=== PATIENT | male | born 1940 | race African-American/Black ===

== ENCOUNTER 2023-03-08 15:04 | Inpatient (IN) | payer OTHER, SELFPAY ==
[2023-03-08] VITALS (39 sets, daily range): BP systolic 78–146; BP diastolic 48–88; PULSE 71–120; RESP 15–30; TEMP 36.1–38.4; O2SAT 84–100; BMI 28.8
--- NOTE | ~2023-03-08 | XR_ITS ---
EXAMINATION: XR abdomen gastric tube insert DATE: 03/08/2023 17:17 INDICATION: Nasogastric tube placement. TECHNIQUE: A supine view of the abdomen was obtained. COMPARISON: None. FINDINGS: There are no dilated loops of bowel. The nasogastric tube tip is in the stomach with proxim al side port in the distal esophagus. IMPRESSION: 1. Nasogastric tube tip in the stomach with proximal side port in the distal esophagus. Advancement 5 cm is recommended. Reviewed, dictated and finalized at location A. IDER ENGAGEMENT EXECUTIVE IMPRESSION: 1. Nasogastric tube tip in the stomach with proximal side port in the distal es ophagus. Advancement 5 cm is recommended.
--- NOTE | ~2023-03-08 | CT_ITS ---
EXAMINATION: CT diagnostic chest w con DATE: 03/08/2023 18:27 INDICATION: LUNG MASS, PNEUMONIA, CHF TECHNIQUE: Computed tomography (CT) of the chest was performed with 100 mL Omnipaque-350 intravenous contrast. Automated exposure control and iterative reconstruction technique were employed. The dose-l ength product was 492.76 mGy-cm. COMPARISON: X-ray chest 03/08/2023 at 5:14 PM. FINDINGS: CHEST: Thoracic aorta: No significant dilation or calcification. Lung parenchyma and airways: Airway secretions in the distal trachea and left mainstem bronchus. Mild emphysematous change. Diffuse groundglass opacities, centralized, more pronounced in the bilateral u pper lungs. More focal consolidation is present in the superior segments of the bilateral lower lobes and the bilateral dependent lower lobes. Thoracic inlet, axillae and chest wall: No thyroid or soft tissue mass. No axillary lymphadenopathy. Endotracheal tube terminating 5.1 cm above the pino. Mediastinum: Dilated central pulmonary arteries as can be seen with pulmonary arterial hypertension. Heart and pericardium: Cardiomegaly. Aortic valve and mitral calcifications. Pacemaker leads in expec zaira position. Coronary artery calcifications: Moderate. Pleura: No effusion or mass. Upper abdomen: NG tube tip in the stomach, side port near the GE junction. Numerous large bilateral r enal cysts. Thoracic bones: No acute osseous finding in the chest. IMPRESSION: Pulmonary opacities likely represent severe pulmonary edema. Upper lobe predominance can be seen with neurogenic edema. More focal bilateral lower lobe superior segment and dependent consolidation may be secondary to kush a, aspiration, or infection. Distal tracheal and right mainstem bronchus secretions. The masslike right hilar finding in the prior chest radiograph is secondary to dilated pulmonary alanna bruce. Endotracheal tube terminates 5.0 cm above the pino. Somewhat shallow positioning of the NG tube, co nsider advancing by 5 cm Reviewed, dictated and finalized at location K. CIATE OF SCIENCE IN NURSING IMPRESSION: Pulmonary opacities likely represent severe pulmonary edema. Upper lobe predomi nance can be seen with neurogenic edema. More focal bilateral lower lobe superior segment and dependent consolidation ma y be secondary to edema, aspiration, or infection. Distal tracheal and right mainstem bronchus secretions. The masslike right hilar finding in the prior chest radiograph is secondary to dilated pulmonary arteries. Endotracheal tube terminates 5.0 cm above the pino. Somewhat shallow position ing of the NG tube, consider advancing by 5 cm
--- NOTE | ~2023-03-08 | XR_ITS ---
Portable chest x-ray Comparison: 03/09/2023 Clinical History: Respiratory failure Findings: Endotracheal tube and NG tube and right IJ line are in place. Probable minimal pleural eff usions. There is central distribution of airspace disease, right lung worse than left. Cardiomediast inal silhouette is stable, with pacemaker device. Bones and soft tissues are unremarkable. Impression: Mild to moderate central pulmonary edema pattern. Correlate clinically for infection. Probable minimal pleural effusions. Support tubes and pacemaker device, as above. Reviewed, dictated and finalized at [facility]. TAL STRATEGIST SENIOR MANAGER Impression: Mild to moderate central pulmonary edema pattern. Correlate clinically for infe ction. Probable minimal pleural effusions. Support tubes and pacemaker device, as above.
--- NOTE | ~2023-03-08 | CT_ITS ---
EXAMINATION: CT abdomen pelvis wo con DATE: 03/09/2023 14:09 INDICATION: Hematuria TECHNIQUE: Computed tomography (CT) of the abdomen and pelvis was performed without intravenous contr ast. Automated exposure control and iterative reconstruction technique were employed. The dose-length product was 1230.03 mGy-cm. COMPARISON: None FINDINGS: Small bilateral pleural effusions with associated volume loss and dependent compressive atelectasis i n the bilateral lower lobes. Additional mild dependent atelectasis at the basilar aspect of the lingu la. Cardiomegaly. Atherosclerotic coronary artery calcifications and aortic valve calcification. Dual -lead cardiac pacemaker with lead tips at the right atrial appendage and near the apex of the right v entricle. No pericardial effusion. Nasogastric tube tip in the body the stomach. 1.3 cm hepatic cyst. Multiple bilateral renal cysts the largest measuring up to 8.8 cm on the left an d 6.8 cm on the right. There are some residual excreted contrast bilateral renal collecting systems r elated to contrast-enhanced chest CT from one day prior. Small amount of arterial atherosclerotic randy cification at the right renal hilum. No urolithiasis. There are some additional vicariously excreted contrast in the dependent aspect of the gallbladder. Spleen, pancreas and bilateral adrenal glands ar e normal. Leggett catheter and some additional excreted contrast within the partially decompressed gall bladder. Prominent prostatomegaly measuring 7.6 x 6.4 x 5.4 cm and which impresses upon the base of t he bladder. Bowels including the appendix are normal. Very small fat-containing umbilical hernia. No free intraperitoneal gas or fluid. No pathologically enlarged abdominal or pelvic lymphadenopathy. Ne ck abdominal aorta. There are bridging osteophytes at multiple levels consistent with diffuse idiopat hic skeletal hyperostosis (DISH). 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 Moderate bilateral hi p osteoarthritis. IMPRESSION: 1. Small bilateral pleural effusions with dependent compressive atelectasis in the bilateral lower lo bes. 2. Cardiomegaly. 3. Prostatomegaly. 4. Very small fat-containing umbilical hernia. Reviewed, dictated and finalized at location A. RY ASSISTANT IMPRESSION: 1. Small bilateral pleural effusions with dependent compressive atelectasis in the bilateral lower lobes. 2. Cardiomegaly. 3. Prostatomegaly. 4. Very small fat-containing umbilical hernia.
--- NOTE | ~2023-03-08 | XR_ITS ---
EXAMINATION: XR abdomen gastric tube rechec DATE: 03/09/2023 13:20 INDICATION: Orogastric tube placement. TECHNIQUE: An upright view of the abdomen was obtained. COMPARISON: Chest CT 03/08/2023 FINDINGS: The lower abdomen is excluded. The orogastric tube tip is in the stomach. There is a left c hest wall pacer with leads in the right atrium and right ventricle. Again seen are airspace opacities at left lung base. IMPRESSION: 1. Orogastric tube tip in the stomach. 2. Airspace opacities at left lung base, consistent with pneumonia. Reviewed, dictated and finalized at location A. CARE CONTACT SPECIALIST
--- NOTE | ~2023-03-08 | XR_ITS ---
EXAMINATION: XR chest 1V portable Exam Date/Time: 03/08/2023 15:50 TAFE REGISTRAR HISTORY: fever Comparison: None. RESULT: Lines, tubes, and devices: Left chest pacer with intact leads. Lungs and pleura: Moderate diffuse reticular and reticulonodular opacities. Cardiomediastinal silhouette: 3.2 cm right hilar opacity. Other: No acute osseous or upper abdominal finding. IMPRESSION: Pulmonary opacities may represent interstitial edema or respiratory bronchiolitis. 3.2 cm right hilar opacity, consider CT of the chest with contrast for further evaluation. Reviewed, dictated and finalized at location K. REGISTRAR IMPRESSION: Pulmonary opacities may represent interstitial edema or respiratory bronchiolit is. 3.2 cm right hilar opacity, consider CT of the chest with contrast for further evaluation.
--- NOTE | ~2023-03-08 | CT_ITS ---
EXAMINATION: CT brain wo con DATE: 03/08/2023 18:26 INDICATION: ALTERED . TECHNIQUE: Computed tomography (CT) of the head was performed without intravenous contrast. The mA wa s adjusted according to patient size. Iterative reconstruction technique was employed. The dose-lengt h product was 681.00 mGy-cm. COMPARISON: None. FINDINGS: No acute intracranial hemorrhage or extra-axial fluid collection. No hydrocephalus, mass, or herniation. No acute ischemic infarct. Unremarkable dural venous sinus attenuation. No acute osseous abnormality. Mild inferior frontal and bilateral ethmoid mucosal thickening, the remaining aerated spaces are aron r. Moderate atrophy and chronic white matter change. Atherosclerotic intracranial calcification. Partial ly visualized endotracheal and OG tubes. IMPRESSION: No acute intracranial process. Reviewed, dictated and finalized at location K. RVISOR REWORK
--- NOTE | ~2023-03-08 | XR_ITS ---
EXAMINATION: XR chest ET placement DATE: 03/08/2023 17:17 INDICATION: Intubation. TECHNIQUE: A single frontal view of the chest was obtained. COMPARISON: Chest single view 03/08/2023 FINDINGS: There are patchy airspace opacities in all lung zones bilaterally. No pleural effusion or p neumothorax. Cardiomegaly is noted. There is a left chest wall pacer with leads in the right atrium a nd right ventricle. The endotracheal tube tip is 7.1 cm above the pino. The nasogastric tube tip is in the stomach. The proximal side port is in the distal esophagus. IMPRESSION: 1. Diffuse lung disease, consistent with pulmonary edema versus pneumonia. 2. Cardiomegaly. 3. Nasogastric tube tip in the stomach with proximal side port in the distal esophagus. Advancement 5 cm is recommended. Reviewed, dictated and finalized at location A. RIAL EXPEDITER IMPRESSION: 1. Diffuse lung disease, consistent with pulmonary edema versus pneumonia. 2. Cardiomegaly. 3. Nasogastric tube tip in the stomach with proximal side port in the distal es ophagus. Advancement 5 cm is recommended.
--- NOTE | ~2023-03-08 | XR_ITS ---
Portable chest x-ray Comparison: 03/08/2023 Clinical History: Line placement Findings: Endotracheal tube, NG tube, and right IJ line are in satisfactory positions. No pneumothor ax. Extensive groundglass pulmonary disease is present bilaterally. Cardiomediastinal silhouette is stable, with pacemaker device. Bones and soft tissues are unremarkable. Impression: Support tubes, as above. No pneumothorax. Extensive groundglass pulmonary disease. Correlate for pulmonary edema or infection. Reviewed, dictated and finalized at location . RBOARD MACHINE OPERATOR Impression: Support tubes, as above. No pneumothorax. Extensive groundglass pulmonary disease. Correlate for pulmonary edema or infec tion.
--- NOTE | 2023-03-08 15:36 | PC.NURSE ---
EMS reports o arrival pt SPO2 was 88% RA, patient does not normally wear O2. On arrival to ED SPO2 82% RA, O2 applied at 3L/NC
--- NOTE | 2023-03-08 15:46 | ED.AMS ---
HPI - Altered Mental Status General Chief Complaint: Altered Mental Status Stated Complaint: AMS, UTI Time Seen by Provider: 03/08/23 15:46 Source: family History of Present Illness HPI narrative: 82 years old male came from home by ambulance with decreased level of consciousness, fever and shortness of breath today. Patient lives alone, last time was seen by his daughters yesterday and he was doing okay, this morning he could not answer the phone appropriately that is why his daughter called 911. Patient is full code. Related Data Allergies Allergy/AdvReac Type Severity Reaction Status Date / Time No Known Allergies Allergy Verified 03/08/23 16:38 Review of Systems Review of Systems: All systems reviewed & are unremarkable except as noted in HPI and below PMFSH Social History Social History (Updated 03/08/23 @ 18:56 by Alee Mccann PA-C) Social History: Surrogate medical decision maker: Payam Tavera, daughter. Code status: Full code. Living arrangements: alone Additional living arrangements comments: Lives in his own home in [place]. Exam Narrative: General appearance: Well-developed, well-nourished, less responsive to verbal commands, laying down flat, Venti mask on, eyes looking backward, rattling breath sounds, belly breathing Skin: Normal color Head: Normocephalic, nontraumatic Eyes: Clear conjunctiva ENT: Oropharynx normal, ears normal, nose normal Neck: Supple, nontender Chest and respiratory: diminution of air entry bilaterally, rhonchi and rales Heart: tachycardia Abdomen: Soft, nontender, no organomegaly, quiet bowel sounds, Leggett catheter in Vascular: Normal peripheral pulses, normal capillary refill. Musculoskeletal: Normal range of motion, nontender back Neurologic: Alert and oriented ?3, DIRECTOR OF CLAIMS is normal as tested, no gross motor deficit Course Consultations Consultation #1: DR CARMONA Date: 03/08/23 Time: 17:12 Consultation #2: [facility], AT FULL CAPACITY, NO WAITING LIST. Date: 03/08/23 Time: 19:24 Vital Signs Vital signs: Vital Signs Temperature 38.4 C H 03/08/23 15:29 Pulse Rate 117 H 03/08/23 15:29 Respiratory Rate 29 H 03/08/23 15:29 Blood Pressure 146/88 H 03/08/23 15:29 Pulse Oximetry 84 L 03/08/23 15:29 Oxygen Delivery Room Air 03/08/23 15:29 Temperature 38.4 C H 03/08/23 15:29 Pulse Rate 86 03/08/23 19:02 Respiratory Rate 30 H 03/08/23 19:02 Blood Pressure 101/55 L 03/08/23 19:02 Pulse Oximetry 95 03/08/23 19:02 Oxygen Delivery Mechanical Ventilation 03/08/23 18:31 Oxygen Flow Rate 3 03/08/23 15:37 Fraction of Inspired Oxygen 50 03/08/23 18:31 Procedures Intubation Intubation #1: Intubation Date: 03/08/23 Intubation Time: 16:38 Time out performed: Yes (10) sedative: Versed Mg Given: 4 paralytic: Succinylcholine Mg Given: 100 Assist Device Used: fiber optic device Tube Size (cm): 7.5 Number of Attempts: 1 Tube Placement Confirmation: visualized tube passing through cords, equal breath sounds bilaterally and no breath sounds over epigastrium Patient Tolerated Procedure: well Intubation Complications: none MDM - Altered Mental Status MDM Narrative Medical decision making narrative: PATIENT CAME TO THE EMERGENCY ROOM BY AMBULANCE FROM HOME WITH CHANGE MENTAL STATUS, TROUBLE BREATHING, VITAL SIGNS ON ARRIVAL SHOWED HEART RATE OF 117, TEMPERATURE 38.4? OXYGENATION 84% ON VENTI MASK PHYSICAL EXAMINATION SHOWED PATIENT WITH LABORED BREATHING, BELLY BREATHING, UNRESPONSIVE,PATIENT GOT INTUBATED DIFFERENTIAL DIAGNOSIS I
[2023-03-08 16:07] LABS: Basophils Percent Auto 0.4 % (0.2-1.2); Eosinophils Percent Auto 0.1 % (0-4.4); Hematocrit 46.9 % (42.0-52.0); Hemoglobin 13.9 g/dL (14.0-18.0); Immature Granulocyte Absolute 0.03 K/mm3 (0.00-0.031); Immature Granulocyte Percent A 0.4 % (0-0.5); Lymphocytes Absolute Auto 0.62 K/mm3 (0.9-3.2); Lymphocytes Percent Auto 8.8 % (18.3-44.2); Mean Corpuscular HGB Conc 29.6 g/dl (32-36); Mean Corpuscular Hemoglobin 26.9 pg (26-34); Mean Corpuscular Volume 90.7 fl (80-100); Mean Platelet Volume 10.1 fl (7.4-10.4); Monocytes Percent Auto 0.3 % (2.6-8.5); Neutrophils Absolute Auto 6.3 K/mm3 (1.3-6.7); Platelet Count Result 221 k/mm3 (150-375); Red Blood Count 5.17 M/mm3 (4.6-6.20); Red Cell Distribution Width 14.2 % (11.5-14.5)
[2023-03-08 16:16] LABS: Lactic Acid Reflex 2.1 mmol/L (0.7-2.0)
[2023-03-08 16:20] LABS: Alanine Aminotransferase 15 U/L (6-50); Albumin Level 3.9 g/dL (3.5-5.1); Alkaline Phosphatase 132 U/L (38-126); Anion Gap 5 mmol/L (8-16); Aspartate Amino Transferase 28 U/L (17-59); Bilirubin,Total 1.2 mg/dL (0.2-1.3); Blood Urea Nitrogen 23 mg/dL (9-20); Calcium 8.9 mg/dL (8.4-10.2); Carbon Dioxide 33 mmol/L (22-30); Chloride 102 mmol/L (98-107); Estimated CRCL calculation 41 ml/min; Estimated Glomerular Filt Rate 53; Glucose 151 mg/dL (65-110); INR 1.5; Potassium 3.5 mmol/L (3.4-5.0); Prothrombin Time 18.6 Seconds (11.1-14.7); Sodium 140 mmol/L (137-145)
[2023-03-08 16:21] LABS: Partial Thromboplastin Time 32.3 SECONDS (22.3-36.8)
[2023-03-08 16:30] LABS: Alveolar/Arterial O2 Gradient 218.4 mmHg; Base Excess ABG 0.1 mEq/l (+/-2.0); Fractional Inspired Oxygen 50 %; HCO3 ABG 28.3 mEq/l (22.0-26.0); Oxygen Content ABG 18.3 %vol (16.0-22.0); Oxygen Saturation ABG 91.5 % (95.0-100.0); Oxyhemoglobin 89.7 % THb (90.0-100.0); PO2 ABG 69.5 mmHg (80.0-100.0); PO2 FiO2 Ratio Arterial Blood 1.39 %; Total Hemoglobin 14.5 g/dL (12.0-18.0)
[2023-03-08] MEDS: PROPOFOL IV EMULSION 100 ML 2.58 MG IV CONT (16:30)
[2023-03-08 16:31] LABS: Platelet Estimate Adequate (Adequate)
[2023-03-08 16:32] LABS: Hypochromasia 1+ (NORMAL); Schistocytes None Seen (NORMAL)
[2023-03-08 16:32] LABS: Device VENTILATOR; Modified Allen's Test Pass; Site Drawn RIGHT RADIAL; pH ABG 7.284 (7.350-7.450)
[2023-03-08 16:34] LABS: Arterial Blood Gas PEEP 5 cmH2O; Arterial Blood Gas Vent Mode CMV; Arterial Blood Gas Ventilator rate 16 /MIN
[2023-03-08 16:35] LABS: Arterial Blood Gas Tidal Volume 450 ml
[2023-03-08 16:43] LABS: SARS-CoV-2 RNA PCR Negative (Negative)
[2023-03-08] MEDS: Please add drug allergy info to patient profile. 1 EACH XX (16:43)
[2023-03-08] MEDS: PIPERACILLN/TAZ 3.375GM/NS50ML 3.375 GM/50 ML BAG IVPB ×2 (16:50→23:52)
[2023-03-08 17:06] LABS: Appearance Urine Turbid (Clear); Bacteria Urine 2+ /hpf; Bilirubin Urine Negative (Negative); Blood Urine 3+ (Negative); Color Urine Yellow (Yellow); Glucose Urine UA Negative (Negative); Ketones Urine Negative (Negative); Leukocyte Esterase Ur 3+ LEU/UL (Negative); Need Manual Microscopic Reviewed; Nitrate Urine Negative (Negative); Protein Urine 2+ mg/dL (Negative); RBC Urine >100 /hpf (0-2); Specific Grav Ur 1.009 (1.001-1.035); Squamous Epithelial Cell Urine Occasional /hpf (Few); WBC Urine >100 /hpf
[2023-03-08 17:07] LABS: Add Urine Microscopic? YES
[2023-03-08 17:12] LABS: Triglycerides 88 mg/dL (<150)
--- NOTE | 2023-03-08 17:32 | PC.NURSE ---
1545: Pt starting to have difficulty breathing and O2 levels dropped to low to mid 80's. This RN applied 2L NC to pt in attempt to get O2 levels to raise, little to no improvement so O2 was bumped to 4L with pt O2 levels remaining in the low 80's. ED respiratory and EDP notified of pt status and pt placed on 15L non rebreather. At this point pt was no longer answering questions or responding to commands. EDP at bedside 1605: 4mg Versed and 100mg Succinylcholine given IV Push by Chloé RN after VORB from EDP 1607: 7 & 1/2 ET tube placed 25 at the lip 1614: 14 Fr OG tube placed 55in at the lip 1635: 50mg Propofol bolus VORB from EDP 1659: 50mg Propofol bolus VORB from EDP 1723: 50mg Propofol bolus VORB from EDP and IV pump increase to 10 mcg/kg/min or 5.2mL/hr
[2023-03-08 17:42] LABS: NT Pro B Type Natriuretic Pept 3180 pg/mL (19.9-100)
--- NOTE | 2023-03-08 17:53 | PC.NURSE ---
1750: 50mg propofol bolus given after VORB from EDP
[2023-03-08 18:02] LABS: MRSA (PCR) NOT DETECTED (NOT DETECTE)
--- NOTE | 2023-03-08 18:20 | PC.NURSE ---
1813: 50mg propofol bolus given after VORB from EDP
[2023-03-08] MEDS: levoFLOXacin 750 MG/D5W 150 ML 750 MG/150 ML BAG 100 MG IVPB (18:36)
--- NOTE | 2023-03-08 18:49 | PC.NURSE ---
1848 : 50mg propofol bolus given after VORB from EDP
--- NOTE | 2023-03-08 18:54 | PM.IMHP ---
H&P: HPI History of Present Illness Date/Time: 03/08/23 21:45 Chief Complaint: Altered mental status. Narrative: This is an 82-year-old male who presented to the emergency department via EMS from home for evaluation of altered mental status. He is currently intubated on mechanical ventilation and all of the following history is obtained via a review of his electronic medical record as well as information provided by family. He has reportedly been very healthy up until recently when he was hospitalized at [facility]. During that stay he had a pacemaker implanted and he was discharged with a Leggett catheter for urinary retention. Family members could not provide much else in the way of history. His daughter saw him yesterday and he seemed to be doing okay at this time. This morning he would not answer the phone and he was found altered and minimally responsive. On arrival to the ED he was minimally responsive, not following verbal commands, and had rattling breath sounds with abdominal breathing. He was intubated shortly thereafter with an ABG showing a pH of 7.284, pCO2 61.0, bicarb 20.3. His temperature was 101.1? F on arrival with blood pressures at the low end of normal. Preliminary workup was significant for a lactic acid of 2.1, troponin 0.62, proBNP 3180, CRP 6.0. Urine was positive for leukocyte esterase, greater than 100 WBC, 2+ bacteria. He tested negative for COVID. Head CT showed no acute findings. Chest CT showed pulmonary opacities likely representing severe pulmonary edema and more focal lower lobe consolidations which may be due to edema, aspiration, or infection as well as dilated pulmonary arteries. He received a 2600 mL fluid bolus and doses of levofloxacin, Zosyn, and vancomycin for possible pneumonia. He is being admitted to the ICU in this setting. At the time my evaluation he is sedated but does try to follow simple commands. Review of Systems Review of Systems: Unable to be obtained given clinical condition. [facility] Past Medical History Medical History (Updated 03/09/23 @ 01:07 by Alee Mccann PA-C) Benign prostatic hyperplasia Urinary retention Surgical History Surgical History (Updated 03/09/23 @ 00:54 by Alee Mccann PA-C) History of permanent cardiac pacemaker placement Family History Family History (Updated 03/09/23 @ 00:54 by Alee Mccann PA-C) Other Family history unknown Social History Social History Social History: Surrogate medical decision maker: Payam Tavera, daughter. Code status: Full code. Smoking packs per day: 1 Smoking cigarettes per day: 20.0 Years smoked: 70 Smoking pack-years: 70.00 Smoking status: Former smoker Tobacco type: cigarettes Alcohol intake: never Substance use: never Living arrangements: alone Additional living arrangements comments: Lives in his own home in [place]. Spiritual care concerns: No Meds Home Medications and Allergies Home Medications Medication Instructions Recorded Confirmed Type amlodipine 10 mg tablet 10 mg PO DAILY 03/08/23 03/08/23 History apixaban 5 mg tablet (Eliquis) 5 mg PO BID 03/08/23 03/08/23 History furosemide 40 mg tablet 40 mg PO BID 03/08/23 03/08/23 History lisinopril 10 mg tablet 10 mg PO DAILY 03/08/23 03/08/23 History tamsulosin 0.4 mg capsule 0.4 mg PO DAILY 03/08/23 03/08/23 History Allergies Allergy/AdvReac Type Severity Reaction Status Date / Time No Known Allergies Allergy Verified 03/08/23 16:38 Vital Signs Vital Signs - 24 hr 03/08/23 15:29 03/08/23 15:37 03/08/23 16:30 Temperature 101.1 F H Pulse Rate 117 H 118 H Respiratory Rate 29 H Blood Pressure 146/88 H Pulse Oximetry 84 L 93 Oxygen Delivery Room Air Nasal Cannula Oxygen Flow Rate 3 Fraction of Inspired Oxygen 03/08/23 16:10 03/08/23 17:23 03/08/23 17:50 Temperature Pulse Rate 120 H 113 H 111 H Respiratory
[2023-03-08] MEDS: FUROSEMIDE INJ 40 MG/4 ML VIAL 60 MG IV PUSH (18:59)
[2023-03-08 19:05] LABS: Reflex Lactic Acid Yes or No Add Lactic
--- NOTE | 2023-03-08 19:15 | PC.NURSE ---
Report given to Cathi SANTOOY, all questions answered
[2023-03-08 19:35] LABS: Lactic Acid 1.4 mmol/L (0.7-2.0)
[2023-03-08] MEDS: VANCOMYCIN 1,250 MG/NS 250 ML 1,250 MG/250 ML BAG 166.67 MG IVPB (20:11)
--- NOTE | 2023-03-08 20:59 | ADMGEN ---
This patient, Urbano Roland, was admitted to Intensive Care Unit-3. Patient/family oriented to hospital policies and general routines including ID bracelet, bed and alarms, visiting hours, pain management, procedures, bathroom and other care routines, personal items, smoking policy, room service/diet, and visiting hours. Information on how to activate the Rapid Response Team has been discussed. Patient/Family are encouraged to report perceived risks to care and to ask questions if they do not understand what they are told or what they should do.
[2023-03-08] MEDS: NOREPINEPHRINE 8 MG/D5W 250 ML 8 MG/250 ML BAG 9.38 MG IV CONT (21:45)
[2023-03-08] MEDS: PROPOFOL IV EMULSION 100 ML 10.01 MG IV CONT (21:52)
[2023-03-08] MEDS: FENTANYL 2,500MCG/NS250ML(*CRX 2,500 MCG/250 ML BAG IV CONT (22:09)
[2023-03-08] MEDS: MIDAZOLAM 100MG/NS 100ML(*CRX) 100 MG/100 ML BAG IV CONT (22:10)
[2023-03-08] MEDS: VANCOMYCIN 1,000 MG/NS 250 ML 1,000 MG/250 ML BAG 250 MG IVPB (22:14)
--- NOTE | 2023-03-08 22:17 | PC.NURSE ---
Patient hypotensive on 20 mcg of Propofol. Passive leg raise (NICOM) performed and patient found to be 45% fluid responsive. Dr. Chamberlain notified and orders received to initiate levophed peripherally and consult Dr. Garay to place CVC. Dr. Garay notified at 0 of need for central line placement. Consent obtained from Manijnder Alfredos, patient's daughter. Jensen Guerrero RN witnessed. Will continue to monitor.
[2023-03-08 22:31] LABS: Triglycerides 84 mg/dL (<150)
[2023-03-08 22:49] LABS: Troponin I 0.672 ng/mL (0.000-0.034)
--- NOTE | 2023-03-08 23:08 | PC.NURSE ---
Dr. Garay updated this RN at 2257 that due to high patient volume in ED, CVC line placement would be delayed approximately 1 hour. Will continue to monitor.
[2023-03-08 23:47] LABS: MRSA (PCR) NOT DETECTED (NOT DETECTE)
[2023-03-08] MEDS: MINERAL OIL/WHITE PETROLATUM OINTMENT 1 APPLIC EACH EYE (23:54)
[2023-03-09] VITALS (53 sets, daily range): BP systolic 93–115; BP diastolic 48–60; PULSE 67–91; RESP 14–24; TEMP 36.6–38.4; O2SAT 95–100; BMI 28.8
--- NOTE | 2023-03-09 | ECHO_ITS ---
Patient Info Name: Urbano Roland Age: 82 years : 1940 Gender: Male Ht: 67 in Wt: 184 lbs BSA: 2.01 m2 HR: 68 bpm BP: 97 / 48 mmHg Technical Quality: Fair Exam Date: 03/09/2023 10:16 AM Exam Location: Echo Lab Exam Room: ICU3 Patient Status: Inpatient Admit Date: 03/08/2023 Staff Ordering Physician: Vladislav Chamberlain MD Tire Changer [employer]: Chela Charles RDCS Attending Provider: Roger Marquez MD Exam Type: CA echo dop color flow w con Study Info Indications - RSEP FAILURE S/P PPM Complete two-dimensional, color flow and Doppler transthoracic echocardiogram is performed with contrast to opacify the left ventricle and to improve the deliniation of the left ventricle endocardial borders. Contrast/Agitated Saline Contrast/Ag. Saline: Definity Amount: 2.00 ml Administered By: Chela Charles [facility] Existing IV Access: Yes IV Access Condition: patent with no signs of infiltration Summary 1. Left ventricular chamber dimension is normal. 2. Left ventricular systolic function is mildly reduced, estimated at 40-45%. 3. There is mildly increased left ventricular wall thickness. 4. The left ventricular diastolic function is grade I diastolic dysfunction. 5. Left atrial chamber dimension is moderately enlarged. 6. Right atrial chamber dimension is mildly enlarged. 7. There is severe aortic valve calcification. 8. There is severe aortic valve stenosis with a peak velocity of 441.37 cm/s, mean gradient of 48 mmHg, and aortic valve area of 0.67 cm2. 9. There is moderate mitral valve regurgitation. 10. There is mild to moderate tricuspid valve regurgitation. 11. There is mild pulmonic regurgitation. Left Ventricle Left ventricular chamber dimension is normal. Left ventricular systolic function is mildly reduced, estimated at 40-45%. There is mildly increased left ventricular wall thickness. The left ventricular diastolic function is grade I diastolic dysfunction. Right Ventricle Right ventricular chamber dimension is normal. Left Atria Left atrial chamber dimension is moderately enlarged. Right Atria Right atrial chamber dimension is mildly enlarged. Atrial Septum Intact interatrial septum visualized by color flow imaging. Aortic Valve The aortic valve is not well visualized. There is severe aortic valve stenosis with a peak velocity of 441.37 cm/s, mean gradient of 48 mmHg, and aortic valve area of 0.67 cm2. There is mild aortic valve regurgitation. There is severe aortic valve calcification. Pulmonic Valve The pulmonic valve is not well visualized. There is mild pulmonic regurgitation. Mitral Valve There is moderate mitral valve regurgitation. The mitral valve annulus is mildly calcified. Tricuspid Valve There is mild to moderate tricuspid valve regurgitation. Pericardium/Pleural There is no pericardial effusion. Inferior Vena Cava Dilated inferior vena cava with >50% collapse upon inspiration consistent with elevated right atrial pressure, 3 mmHg. Aorta The aortic root size at the sinus of Valsalva is normal. Left Ventricular Outflow Tract Name Value Normal LVOT 2D LVOT Diameter 2.02 cm LVOT Doppler LVOT Peak Gradient 4 mmHg
[2023-03-09 01:15] LABS: Glucose Point of Care 139 mg/dl (65-105)
--- NOTE | 2023-03-09 01:15 | ECG_ITS ---
Measurements Intervals [place] Rate: 75 P: 24 IL: 165 QRS: -70 QRSD: 204 T: 117 QT: 503 QTc: 565 Interpretive Statements ATRIAL SENSE- ELECTRONIC VENTRICULAR PACEMAKER NO FURTHER INTERPRETATION IS POSSIBLE ATYPICAL ECG NO PREVIOUS ECG AVAILABLE FOR COMPARISON Electronically Signed On 03-09-2023 6:08:56 TRAUMA COORDINATOR by Gama Juarez D.O.
--- NOTE | 2023-03-09 01:33 | P.PCNBED_ITS ---
Procedures Central Line Placement Right IJ: Central Line Date: 03/09/23 Central Line Time: 00:30 Consent: I have discussed with the patient and/or surrogate, the non-emergent placement of a central venous catheter, including its clinical necessity/indication and associated potential risks and complications. The patient and/or surrogate understand(s) and acknowledge(s) the need to proceed with central venous catheter insertion as an important element of the patient's clinical management. Time Out Performed: Yes Patient Position: trendelenburg Patient placed on monitor/pulse ox: Yes Provider Prep: mask, sterile gown, sterile gloves, Max. sterile barrier precautions, cap and hand hygiene with conventional soap/water or alcohol based hand rub Central line prep: 2% Chlorhexidine scrub Sterile US Technique with sterile gel/sterile probe covers: Yes Central line lumen inserted: triple Grenadian: 15 Length (cm): 15 Depth of Insertion (cm): 15 Post Procedure: sutured in place, good blood return, all ports aspirated, flushed, capped, transparent dressing, antimicrobial product and aseptic technique maintained throughout procedure Post procedure x-ray: tip of catheter in good position and no pneumothorax seen Patient tolerated procedure: no complications Complications: none
[2023-03-09 02:04] LABS: Troponin I 0.909 ng/mL (0.000-0.034)
[2023-03-09 02:26] LABS: Influenza A QL RT-PCR Negative (Negative); Influenza B QL RT-PCR Negative (Negative); RSV RNA, RT-PCR Negative (Negative); SARS-CoV-2 RNA PCR Negative (Negative)
[2023-03-09] MEDS: LEVALBUTEROL NEB 1.25 MG/3 ML INHALATION ×4 (03:19→20:21)
[2023-03-09] MEDS: IPRATROPIUM BR 0.02% INH SOLN 0.5 MG/2.5 ML VIAL INHALATION ×4 (03:19→20:22)
[2023-03-09 04:19] LABS: Hematocrit 36.4 % (42.0-52.0); Hemoglobin 10.9 g/dL (14.0-18.0); Mean Corpuscular HGB Conc 29.9 g/dl (32-36); Mean Corpuscular Hemoglobin 27.3 pg (26-34); Mean Corpuscular Volume 91.2 fl (80-100); Mean Platelet Volume 10.3 fl (7.4-10.4); Platelet Count Result 223 k/mm3 (150-375); Red Blood Count 3.99 M/mm3 (4.6-6.20); Red Cell Distribution Width 14.4 % (11.5-14.5); White Blood Count 22.3 K/mm3 (4.5-10.0)
[2023-03-09 04:24] LABS: Alanine Aminotransferase 14 U/L (6-50); Albumin Level 2.9 g/dL (3.5-5.1); Alkaline Phosphatase 84 U/L (38-126); Anion Gap 6 mmol/L (8-16); Aspartate Amino Transferase 35 U/L (17-59); Bilirubin,Total 0.9 mg/dL (0.2-1.3); Blood Urea Nitrogen 25 mg/dL (9-20); Calcium 7.5 mg/dL (8.4-10.2); Carbon Dioxide 27 mmol/L (22-30); Chloride 107 mmol/L (98-107); Estimated CRCL calculation 34 ml/min; Estimated Glomerular Filt Rate 59; Glucose 138 mg/dL (65-110); Magnesium 1.9 mg/dL (1.6-2.3); Phosphorus 3.8 mg/dL (2.5-4.5); Sodium 140 mmol/L (137-145)
[2023-03-09 05:19] LABS: Alveolar/Arterial O2 Gradient 127.6 mmHg; Base Excess ABG -3.6 mEq/l (+/-2.0); Fractional Inspired Oxygen 40 %; HCO3 ABG 22.1 mEq/l (22.0-26.0); Oxygen Content ABG 16.7 %vol (16.0-22.0); Oxygen Saturation ABG 97.7 % (95.0-100.0); Oxyhemoglobin 96.7 % THb (90.0-100.0); PCO2 ABG 42.2 mmHg (35.0-45.0); PO2 ABG 109.1 mmHg (80.0-100.0); PO2 FiO2 Ratio Arterial Blood 2.73 %; Total Hemoglobin 12.2 g/dL (12.0-18.0); pH ABG 7.336 (7.350-7.450)
[2023-03-09 05:21] LABS: Device VENTILATOR; Site Drawn RIGHT RADIAL
[2023-03-09 05:22] LABS: Arterial Blood Gas PEEP 5 cmH2O; Arterial Blood Gas Tidal Volume 450 ml; Arterial Blood Gas Vent Mode CMV; Arterial Blood Gas Ventilator rate 16 /MIN
[2023-03-09] MEDS: CENTRAL LINE FLUSH 10 ML IV PUSH ×3 (05:38→20:47)
[2023-03-09] MEDS: PIPERACILLN/TAZ 3.375GM/NS50ML 3.375 GM/50 ML BAG IVPB ×3 (05:38→18:00)
--- NOTE | 2023-03-09 08:36 | WPDCNINT ---
Assessment and Plan Assessment and plan (1) Septic shock: Code(s): A41.9 - Sepsis, unspecified organism; R65.21 - Severe sepsis with septic shock Status: Acute Assessment and Plan: Septic shock secondary to urinary tract infection which is secondary to indwelling Leggett the patient has Also possibility of pneumonia which could be an aspiration Blood cultures growing Gram-negative rods identification is pending Continue Zosyn and Levaquin at this time until identification is susceptibilities unknown. Discontinue vancomycin Urine pneumococcal antigen and mycoplasma pneumoniae IgM are pending. Urine Legionella is pending Continue Levophed titration to maintain mean arterial pressure Patient received IV fluid bolus and has received more than 3 L of fluids. He does have evidence of congestive heart failure hence further IV fluids were held Will give 25% and 5% albumin at this time and hold further crystalloids (2) Acute respiratory failure: Code(s): J96.00 - Acute respiratory failure, unspecified whether with hypoxia or hypercapnia Status: Acute Assessment and Plan: Multifactorial respiratory failure secondary to sepsis, encephalopathy, congestive heart failure, pneumonia Most recent ABG reviewed shows improvement since initial presentation Chest x-ray and vent settings reviewed Bronchodilators PCR for influenza COVID and RSV were negative (3) Urinary tract infection associated with catheterization of urinary tract: Code(s): T83.511A - Infection and inflammatory reaction due to indwelling urethral catheter, initial encounter; N39.0 - Urinary tract infection, site not specified Status: Acute Assessment and Plan: See above (4) Pulmonary edema: Code(s): J81.1 - Chronic pulmonary edema Status: Acute Assessment and Plan: See above (5) Elevated troponin: Code(s): R79.89 - Other specified abnormal findings of blood chemistry Status: Acute Assessment and Plan: Patient has elevated troponin. Unknown cardiac history although he does have pacemaker suggestive of some sort of heart disease Patient is already anticoagulated with Eliquis. Add aspirin and statin Check echocardiogram Consult cardiology Obtain records from [facility] (6) Congestive heart failure: Code(s): I50.9 - Heart failure, unspecified Status: Acute Assessment and Plan: Elevated BNP and mild edema in the legs suggest chronic congestive heart failure Obtain echocardiogram (7) Hematuria: Code(s): R31.9 - Hematuria, unspecified Status: Acute Assessment and Plan: Patient presented with indwelling Leggett was placed [facility] and was changed in the ER due to UTI and sepsis Obtain CT scan of the abdomen and pelvis Consult urology Will continue anticoagulation until more records are available as I am not sure why patient is on Eliquis Will hold if hematuria became severe (8) Encephalopathy: Code(s): G93.40 - Encephalopathy, unspecified Status: Acute Assessment and Plan: Likely metabolic encephalopathy. Head CT was negative Sedation holiday this morning (9) Pneumonia: Code(s): J18.9 - Pneumonia, unspecified organism Status: Acute Assessment and Plan: Community-acquired versus aspiration See above Plan DVT prophylaxis -Eliquis Stress ulcer prophylaxis -start Protonix Nutrition -start Tube Feeds Code Status - Full Code I spoke to patient's daughter at bedside and reviewed details with her. As above mention she said the patient had permanent pacemaker placed by his mica builder at [facility] and plan was to do a cardiac catheterization as coronary artery disease was suspected. It appears that his EF was low as he was started on anticoagulation. Indwelling Leggett catheter was also placed prior to discharge with plan for further management as an outpatient. We discussed transferring
[2023-03-09] MEDS: ALBUMIN HUMAN 5% 25 GM/500 ML BTL IV CONT (09:49)
[2023-03-09] MEDS: MINERAL OIL/WHITE PETROLATUM OINTMENT 1 APPLIC EACH EYE ×2 (10:11→20:47)
[2023-03-09] MEDS: ASPIRIN 325 MG TABLET PO (10:11)
[2023-03-09] MEDS: APIXABAN 5 MG TABLET PO ×2 (10:11→20:47)
[2023-03-09] MEDS: TAMSULOSIN HCL 0.4 MG CAPSULE PO (10:12)
[2023-03-09] MEDS: PANTOPRAZOLE SODIUM IV 40 MG VIAL IV PUSH (10:12)
[2023-03-09 10:17] LABS: Ammonia < 9 umol/L (9-30)
--- NOTE | 2023-03-09 10:48 | WPDURCON ---
Assessment and Plan Assessment and plan (1) Hematuria: Code(s): R31.9 - Hematuria, unspecified Status: Acute Assessment and Plan: Urine actually does not appear to be grossly bloody. He has a three-way Leggett in. If it does become bloody would recommend starting CBI. (2) Urinary tract infection associated with catheterization of urinary tract: Code(s): T83.511A - Infection and inflammatory reaction due to indwelling urethral catheter, initial encounter; N39.0 - Urinary tract infection, site not specified Status: Acute Assessment and Plan: Urine culture is pending but blood cultures with Gram-negative bacilli. Await final urine cultures (3) Urinary retention: Code(s): R33.9 - Retention of urine, unspecified Status: Acute Assessment and Plan: Require chronic indwelling Leggett until acute issues resolve. Urology Consult Note HPI Date Seen: 03/09/23 Time Seen: 10:48 Requesting Physician: Roger Marquez MD Primary Care Provider: UNKNOWN,DOCTOR Consult Narrative Reason for consult: Urinary retention with hematuria Narrative: Urbano Roland is a 82 year old male with multiple medical issues who was admitted with mental total status changes, respiratory failure, possible sepsis now with Gram-negative bacilli in his blood. History is obtained partly by his daughters. Patient had been seeing Dr. Vuong for voiding issues over the past couple of years. Patient was recently at [facility] and had a Leggett placed. When he re-presented to this emergency room a three-way Leggett was placed for some reason. He is not on CBI and his urine is actually fairly clear at this time. Patient is on anticoagulants. Review of Systems Review of Systems: All systems reviewed & are unremarkable except as noted in HPI and below PMFSH Past Medical History Medical History (Updated 03/09/23 @ 10:53 by Brandon Rodriguez MD) Benign prostatic hyperplasia Urinary retention Surgical History Surgical History History of permanent cardiac pacemaker placement Family History Family History Other Family history unknown Social History Social History Social History: Surrogate medical decision maker: Payam Tavera, daughter. Code status: Full code. Smoking packs per day: 1 Smoking cigarettes per day: 20.0 Years smoked: 70 Smoking pack-years: 70.00 Smoking status: Former smoker Tobacco type: cigarettes Alcohol intake: never Substance use: never Living arrangements: alone Additional living arrangements comments: Lives in his own home in [place]. Spiritual care concerns: No Meds Home Medications and Allergies Home Medications Medication Instructions Recorded Confirmed Type amlodipine 10 mg tablet 10 mg PO DAILY 03/08/23 03/08/23 History apixaban 5 mg tablet (Eliquis) 5 mg PO BID 03/08/23 03/08/23 History furosemide 40 mg tablet 40 mg PO BID 03/08/23 03/08/23 History lisinopril 10 mg tablet 10 mg PO DAILY 03/08/23 03/08/23 History tamsulosin 0.4 mg capsule 0.4 mg PO DAILY 03/08/23 03/08/23 History Allergies Allergy/AdvReac Type Severity Reaction Status Date / Time No Known Allergies Allergy Verified 03/08/23 16:38 Vital Signs Vital Signs - 24 hr 03/08/23 15:29 03/08/23 15:37 03/08/23 16:30 Temperature 38.4 C H Pulse Rate 117 H 118 H Respiratory Rate 29 H Blood Pressure 146/88 H Pulse Oximetry 84 L 93 Oxygen Delivery Room Air Nasal Cannula Oxygen Flow Rate 3 Fraction of Inspired Oxygen 03/08/23 16:10 03/08/23 17:23 03/08/23 17:50 Temperature Pulse Rate 120 H 113 H 111 H Respiratory Rate 15 25 H Blood Pressure Pulse Oximetry 96 Oxygen Delivery Mechanical Ventilation Oxygen Flow Rate Fraction of Inspired Oxyg
[2023-03-09] MEDS: DOXYCYCLINE 100 MG/NS 100 ML 100 MG/100 ML BAG IVPB ×2 (10:55→20:46)
[2023-03-09] MEDS: PERFLUTREN LIPID MICROSPHERES 1.5 ML VIAL DILUTED TO 10 ML TOTAL VOLUME IV PUSH (11:00)
--- NOTE | 2023-03-09 11:42 | PCDIET ---
Tube feeding recommendations: Vital AF 1.2 at 20 ml/hr advance by 10 ml/hr q 4 hours to goal rate of 70 ml/hr providing 1848 kcals/116 gms protein/1249 ml water. Flush 30 ml q 4 hours. Monitoring daily in ICU rounds and reassessing every Tuesday and Tuesday.
--- NOTE | 2023-03-09 11:54 | IVDEFINITY ---
Prior to administration of IV Definity the patient was educated on the risks and benefits of the imaging enhancing agent including potential adverse side effects. The patient verbalized understanding. Allergies were verified. No exclusion criteria were identified and at least one of the following inclusion criteria were met: 1) physician request, 2) patient technically difficult to image (per the [place] [employer] Echocardiography guidelines of two or more segments not discernable within the apical view), or 3) questionable left ventricular function. ?
[2023-03-09 11:55] LABS: Glucose Point of Care 107 mg/dl (65-105)
[2023-03-09] MEDS: ALBUMIN HUMAN 25% 25 GM/100 ML 100 ML IVPB ×2 (13:11→18:00)
--- NOTE | 2023-03-09 20:45 | PC.NURSE ---
Patient received a bed at [facility] in ICU-bed 1101. Family at bedside when phone call received. Report called to Juanita Lindsey at 20:30. Dr. Hawkins accepting physician at [facility]. Carmen called and gave ETA of 2245. Will continue to monitor.
--- NOTE | 2023-03-09 22:54 | PC.NURSE ---
Carmen arrived at 2240. Patient's vitals stable. Levophed on standby. Patient remains intubated with CMV, VT 450, rate 16, PEEP of 5 and 30%. NATANAEL Grant updated of patient departure and condition. All belongings sent with EMS.
[2023-03-11 16:15] LABS: Mycoplasma IgM Antibody Titer 35 U/mL (<770)
[2023-03-13 06:52] LABS: Legionella pneumophila Ag Ur Not Detected (Not Detected)
[2023-03-13 11:57] LABS: Pneumococcal Antigen Urine Not Detected (Not Detected)
--- NOTE | 2023-03-14 10:54 | IVDEFINITY ---
Prior to administration of IV Definity the patient was educated on the risks and benefits of the imaging enhancing agent including potential adverse side effects. The patient verbalized understanding. Allergies were verified. No exclusion criteria were identified and at least one of the following inclusion criteria were met: 1) physician request, 2) patient technically difficult to image (per the [place] [employer] of Echocardiography guidelines of two or more segments not discernable within the apical view), or 3) questionable left ventricular function. ?
--- NOTE | 2023-03-17 21:29 | PM.TDS ---
Transfer Discharge Sum: Prov Provider Date of admission: 03/08/23 18:53 Primary care physician: UNKNOWN,DOCTOR Admitting clinician: Roger Marquez MD Consults: 03/09/23 Consult to Physician Routine Comment: Called office and notified them of consult Consulting Provider: Christoph Cam snuff grinder and screener/MD group to consult: Cardiology Reason for consultation: NSTEMI Has provider been notified: Yes Consult to Physician Routine Comment: Called office and notified them of consult Consulting Provider: Brandon Rodriguez snuff grinder and screener/MD group to consult: Urology Reason for consultation: Hematuria, Indwelling Leggett Has provider been notified: Yes DS: Admitting Diagnosis Discharge Date 03/09/23 Admitting Diagnosis (1) Acute respiratory failure: ?Code(s): J96.00 - Acute respiratory failure, unspecified whether with hypoxia or hypercapnia ?Status:?Acute ?Assessment and Plan: Secondary to severe pulmonary edema noted on CT scan. Cannot rule out pneumonia or aspiration. Currently on mechanical ventilation managed per cable reeler. (2) Sepsis: ?Code(s): A41.9 - Sepsis, unspecified organism ?Status:?Acute ?Assessment and Plan: Patient presents with fever, relative hypotension, and elevated lactic acid level. Source may be urine or lungs. Continue empiric antibiotics (levofloxacin, Zosyn, vancomycin). Blood, urine, and sputum cultures pending. (3) Pulmonary edema: ?Code(s): J81.1 - Chronic pulmonary edema ?Status:?Acute ?Assessment and Plan: [facility]; records requested for review. CT scan shows severe pulmonary edema with upper lobe predominance. Unable to diurese at this time due to ongoing soft blood pressures despite norepinephrine. (4) Elevated troponin: ?Code(s): R79.89 - Other specified abnormal findings of blood chemistry ?Status:?Acute ?Assessment and Plan: Initial troponin was 0.672. Unable to find EKG, if done, from the ED. Stat EKG is pending. Troponins will be trended to peak. Currently on apixaban. Records requested from [facility]. (5) Pneumonia: ?Code(s): J18.9 - Pneumonia, unspecified organism ?Status:?Acute ?Assessment and Plan: Chest CT shows severe edema and more focal consolidations which may be due to edema, aspiration, or infection. Secretions were noted in the distal tracheal and right mainstem bronchus. Continue empiric antibiotics for now pending blood and sputum cultures. (6) Abnormal urinalysis: ?Code(s): R82.90 - Unspecified abnormal findings in urine ?Status:?Acute ?Assessment and Plan: On empiric antibiotics, pending urine culture. He does have a Leggett catheter in place due to urinary retention. DS: Discharge Diagnosis Discharge Diagnosis (1) Septic shock: Code(s): A41.9 - Sepsis, unspecified organism; R65.21 - Severe sepsis with septic shock Status: Acute (2) Acute respiratory failure: Code(s): J96.00 - Acute respiratory failure, unspecified whether with hypoxia or hypercapnia Status: Acute (3) Urinary tract infection associated with catheterization of urinary tract: Code(s): T83.511A - Infection and inflammatory reaction due to indwelling urethral catheter, initial encounter; N39.0 - Urinary tract infection, site not specified Status: Acute (4) Pulmonary edema: Code(s): J81.1 - Chronic pulmonary edema Status: Acute (5) Elevated troponin: Code(s): R79.89 - Other specified abnormal findings of blood chemistry Status: Acute (6) Congestive heart failure: Code(s): I50.9 - Heart failure, unspecified Status: Acute (7) Hematuria: Code(s): R31.9 - Hematuria, unspecified Status: Acute (8) Encephalopathy: Code(s): G93.40 - Encephalopathy, unspecified Status: Acute (9) Pneumonia: Code(s): J18.9 - Pneumonia, unspecified o
== END 2023-03-09 22:52 | disposition short-term general hospital (02) | DRG 698 ==
LOC: ANHED 19:13 → ANHICU 19:50
PROVIDERS: Internal Medicine; Physician Assistant; Admitting Provider Family Medicine; Emergency Provider Emergency Medicine; Visit Provider Internal Medicine
DX: T83.511A Infection and inflammatory reaction due to indwelling urethral catheter, initial encounter (principal); A41.9 Sepsis, unspecified organism; R65.21 Severe sepsis with septic shock; J18.9 Pneumonia, unspecified organism; J69.0 Pneumonitis due to inhalation of food and vomit; G93.41 Metabolic encephalopathy; J96.00 Acute respiratory failure, unspecified whether with hypoxia or hypercapnia; I50.9 Heart failure, unspecified; N39.0 Urinary tract infection, site not specified; R31.9 Hematuria, unspecified; Z20.822 Contact with and (suspected) exposure to COVID-19; N40.1 Benign prostatic hyperplasia with lower urinary tract symptoms; R33.8 Other retention of urine; Z87.891 Personal history of nicotine dependence; Z95.0 Presence of cardiac pacemaker
CPT/HCPCS: 31500; 36415; 36600; 70450; 71045; 71260; 74176; 80053; 81001; 82140; 82805; 82948; 83605; 83735; 83880; 84100; 84443; 84478; 84484; 85025; 85027; 85610; 85730; 86140; 86738; 87040; 87070; 87086; 87186; 87205; 87449; 87635; 87637; 87641; 87899; 93005; 94002; 94003; 94640; 96365; 99285; A9270; C1751; C8929; C9113; J0330; J1940; J1956; J2250; J2543; J2704; J3010; J3370; J7030; P9045; P9047; Q9957; Q9967